=== PATIENT | female | born 1945 | race Hispanic/Latino ===

== ENCOUNTER 2017-06-27 18:05 | Inpatient (IN) | payer MEDICARE, OTHER ==
[~2017-06-27] VITALS: Ht 162.6 cm; Wt 96.1 kg
[2017-06-27 19:11] LABS: BASOPHILS % (AUTO) 0.4 % (0.0-5.0); EOSINOPHILS % (AUTO) 1.3 % (0.0-8.0); HEMATOCRIT 43.2 % (36-48); LYMPHOCYTES % (AUTO) 18.7 % (21.0-51.0); MEAN CORPUSCULAR HEMOGLOBIN 26.8 pg (27.0-33.0); MEAN CORPUSCULAR HGB CONC 31.5 g/dL (32.0-36.0); MEAN CORPUSCULAR VOLUME 84.9 fL (79-99); MONOCYTES % (AUTO) 7.3 % (3.0-13.0); NEUTROPHILS % (AUTO) 72.3 % (40.0-77.0); PLATELET COUNT (AUTO) 344 K/uL (130-400); RED BLOOD CELL COUNT(AUTO) 5.09 MIL/uL (4.00-5.50); RED CELL DISTRIBUTION WIDTH 17.6 % (11.0-15.5); WHITE BLOOD COUNT (AUTO) 11.6 K/uL (4.8-10.8)
[2017-06-27 19:16] LABS: RAPID GROUP A STREP NEGATIVE (NEGATIVE)
[2017-06-27 19:24] LABS: POTASSIUM 3.6 mmol/L (3.5-5.1)
[2017-06-27 19:36] LABS: ALBUMIN 2.5 g/dL (3.5-5.0); BILIRUBIN,TOTAL 1.3 mg/dL (0.2-1.0); CREATINE KINASE MB 3.6 ng/mL (0.5-3.6); TOTAL PROTEIN, SERUM 7.8 g/dL (6.0-8.3)
[2017-06-27] MEDS ORDERED: SODIUM CHLORIDE 0.9% 1000ML 2,000 ML IV ONE (19:48)
[2017-06-27 19:51] LABS: B-TYPE NATRIURETIC PEPTIDE 1220 pg/mL (0-100)
[2017-06-27] MEDS ORDERED: CEFTRIAXONE SODIUM 1 GM ONE (20:01)
[2017-06-27] MEDS ORDERED: ASPIRIN 325 MG TABLET ONE (20:01)
[2017-06-27] MEDS ORDERED: AZITHROMYCIN 500MG+NS 250ML 250 ML IV ONE (20:42)
[2017-06-27] MEDS ORDERED: BENZONATATE 100 MG CAPSULE PO ONE (20:48)
[2017-06-27] MEDS ORDERED: ENOXAPARIN SODIUM 40 MG/0.4 ML SYRINGE SQ ONE (22:08)
[2017-06-27] MEDS ORDERED: FUROSEMIDE 10 MG/ML 2ML VIAL ONE (22:08)
[2017-06-27] MEDS ORDERED: METOPROLOL TARTRATE 25 MG TAB ONE (22:09)
[2017-06-27 22:34] LABS: APPEARANCE,URINE Cloudy (CLEAR); BILIRUBIN,URINE Small (NEGATIVE); COLOR,URINE Dark Yellow (YELLOW); GLUCOSE, URINE (UA) Negative (NEGATIVE); KETONES,URINE Trace mg/dL (NEGATIVE); LEUKOCYTE ESTERASE ,URINE Negative (NEGATIVE); NITRATE,URINE Negative (NEGATIVE); OCCULT BLOOD,URINE Trace (NEGATIVE); PROTEIN,URINE POS 2+ (NEGATIVE)
[2017-06-27 22:50] LABS: BACTERIA,URINE Many /HPF (None Seen); MUCUS,URINE Many LPF (None Seen); SQUAMOUS EPITHELIAL CELL,UR Moderate /LPF (0-2)
[2017-06-27] MEDS ORDERED: LIDOCAINE HCL-MPF 1% 2ML VIAL IJ PRN (23:15)
[2017-06-27] MEDS ORDERED: LACTULOSE 20 GM/30 ML UDCUP PO PRN (23:15)
[2017-06-27] MEDS ORDERED: POTASSIUM CHLORIDE 20MEQ/100ML 100 ML IV PRN (23:15)
[2017-06-27] MEDS ORDERED: CLONIDINE HCL 0.1 MG TABLET PO PRN (23:15)
[2017-06-27] MEDS ORDERED: DEXTROSE 50%-WATER 50 ML DISP.SYRIN IV PRN (23:15)
[2017-06-27] MEDS ORDERED: POTASSIUM CHLORIDE 10% ELIXIR 20 MEQ/15 ML UDCUP PO PRN (23:15)
[2017-06-27] MEDS ORDERED: ACETAMINOPHEN 325 MG TAB PO PRN ×2 (23:15)
[2017-06-27] MEDS ORDERED: NITROGLYCERIN 0.4 MG SL TAB SL PRN (23:15)
[2017-06-27] MEDS ORDERED: GLUCAGON 1MG KIT 1 MG ML IM PRN (23:15)
[2017-06-28] VITALS (7 sets, daily range): BP systolic 116–154; BP diastolic 66–93
[2017-06-28] MEDS ORDERED: HYDRALAZINE HCL 20 MG/ML VIAL IV PRN (00:45)
[2017-06-28] MEDS ORDERED: ONDANSETRON HCL 4 MG/2 ML VIAL IVP PRN (00:45)
[2017-06-28] MEDS: FUROSEMIDE 10 MG/ML 2ML VIAL IV SCH ×3 (00:45→19:48)
[2017-06-28] MEDS: IPRATROPIUM/ALBUTEROL SULFATE 3 ML SOLUTION IH SCH ×6 (02:34→21:40)
[2017-06-28] MEDS ORDERED: VANCOMYCIN 1GM+NS 250ML 250 ML IV ONE (03:33)
[2017-06-28 05:53] LABS: BASOPHILS % (AUTO) 0.5 % (0.0-5.0); EOSINOPHILS % (AUTO) 2.5 % (0.0-8.0); HEMATOCRIT 38.4 % (36-48); LYMPHOCYTES % (AUTO) 26.6 % (21.0-51.0); MEAN CORPUSCULAR HEMOGLOBIN 27.6 pg (27.0-33.0); MEAN CORPUSCULAR HGB CONC 32.6 g/dL (32.0-36.0); MEAN CORPUSCULAR VOLUME 84.6 fL (79-99); MONOCYTES % (AUTO) 10.1 % (3.0-13.0); NEUTROPHILS % (AUTO) 60.3 % (40.0-77.0); PLATELET COUNT (AUTO) 319 K/uL (130-400); RED BLOOD CELL COUNT(AUTO) 4.54 MIL/uL (4.00-5.50); RED CELL DISTRIBUTION WIDTH 16.6 % (11.0-15.5); WHITE BLOOD COUNT (AUTO) 11.4 K/uL (4.8-10.8)
[2017-06-28] MEDS: INSULIN R NPO SSI SQ SCH ×3 (06:00→12:00)
[2017-06-28 06:02] LABS: INR 1.12 (0.85-1.15); PARTIAL THROMBOPLASTIN TIME 26.2 SEC (26.3-35.5); PROTHROMBIN TIME 11.7 SEC (9.6-11.6)
[2017-06-28 06:06] LABS: HEMOGLOBIN A1C 6.3 % (4.0-6.0)
[2017-06-28 06:13] LABS: B-TYPE NATRIURETIC PEPTIDE 1090 pg/mL (0-100)
[2017-06-28 06:25] LABS: POTASSIUM 3.8 mmol/L (3.5-5.1)
[2017-06-28 06:26] LABS: CREATINE KINASE MB 2.4 ng/mL (0.5-3.6)
[2017-06-28 06:27] LABS: TROPONIN I 1.78 ng/mL (0.00-0.06)
[2017-06-28] MEDS ORDERED: IPRATROPIUM/ALBUTEROL SULFATE 3 ML SOLUTION IH ONE (06:57)
[2017-06-28] MEDS ORDERED: CEFTRIAXONE 1GM/D5W 50ML 50 ML IV SCH (08:30)
[2017-06-28] MEDS ORDERED: AZITHROMYCIN 500MG+NS 250ML 250 ML IV SCH (09:00)
[2017-06-28] MEDS ORDERED: CLOPIDOGREL BISULFATE 300 MG TAB PO SCH ×2 (09:00→16:37)
[2017-06-28] MEDS ORDERED: ASPIRIN 325 MG TABLET PO SCH (09:00)
[2017-06-28] MEDS ORDERED: PHARMACY COMMUNICATION MISC SCH (10:15)
[2017-06-28] MEDS: METOPROLOL TARTRATE 25 MG TAB PO SCH ×2 (10:21→19:50)
[2017-06-28] MEDS: ASPIRIN 81MG TAB.CHEW PO SCH (10:21)
[2017-06-28] MEDS ORDERED: IOPAMIDOL-370 100 ML VIAL IV ONE (10:58)
[2017-06-28 13:24] LABS: CREATINE KINASE MB 1.8 ng/mL (0.5-3.6)
[2017-06-28 13:26] LABS: TROPONIN I 1.21 ng/mL (0.00-0.06)
[2017-06-28] MEDS: ENOXAPARIN SODIUM 100 MG/1 ML SQ SCH (14:16)
[2017-06-28 14:53] LABS: MAGNESIUM 1.5 mg/dL (1.80-2.40); POTASSIUM 3.4 mmol/L (3.5-5.1)
[2017-06-28] MEDS ORDERED: MAGNESIUM 2GM PREMIX 50ML 50 ML IV PRN (15:00)
[2017-06-28] MEDS ORDERED: SODIUM CHLORIDE 0.9% 250 ML IV ONE (15:16)
[2017-06-28] MEDS: POTASSIUM CHLORIDE 20 MEQ ERTAB PO PRN ×2 (15:18→16:33)
[2017-06-28] MEDS: INSULIN R PO SS1 SQ SCH ×2 (16:21→21:00)
[2017-06-28] MEDS: AZITHROMYCIN 500MG+NS 250ML 250 ML IV SCH (19:50)
[2017-06-28] MEDS ORDERED: CEFTRIAXONE SODIUM 1 GM IVP SCH (20:00)
[2017-06-28] MEDS ORDERED: ENOXAPARIN SODIUM 100 MG/1 ML SQ SCH (21:00)
[2017-06-29] VITALS: BP 120/76
[2017-06-29] MEDS: IPRATROPIUM/ALBUTEROL SULFATE 3 ML SOLUTION IH SCH ×6 (01:17→21:30)
[2017-06-29] MEDS: ENOXAPARIN SODIUM 100 MG/1 ML SQ SCH ×3 (01:33→20:45)
[2017-06-29 03:57] LABS: BASOPHILS % (AUTO) 0.8 % (0.0-5.0); EOSINOPHILS % (AUTO) 2.7 % (0.0-8.0); HEMATOCRIT 38.7 % (36-48); MEAN CORPUSCULAR HEMOGLOBIN 27.3 pg (27.0-33.0); MEAN CORPUSCULAR HGB CONC 32.3 g/dL (32.0-36.0); MEAN CORPUSCULAR VOLUME 84.4 fL (79-99); MONOCYTES % (AUTO) 8.3 % (3.0-13.0); NEUTROPHILS % (AUTO) 67.2 % (40.0-77.0); PLATELET COUNT (AUTO) 326 K/uL (130-400); RED BLOOD CELL COUNT(AUTO) 4.59 MIL/uL (4.00-5.50); WHITE BLOOD COUNT (AUTO) 9.9 K/uL (4.8-10.8)
[2017-06-29 04:03] VITALS: BP 116/66
[2017-06-29 04:07] LABS: CREATININE 1.1 mg/dL (0.5-1.5); POTASSIUM 3.5 mmol/L (3.5-5.1)
[2017-06-29 04:24] LABS: B-TYPE NATRIURETIC PEPTIDE 628 pg/mL (0-100)
[2017-06-29] MEDS: POTASSIUM CHLORIDE 20 MEQ ERTAB PO PRN ×2 (05:54→18:33)
[2017-06-29] MEDS: INSULIN R PO SS1 SQ SCH ×4 (06:03→21:00)
[2017-06-29] MEDS: ASPIRIN 81MG TAB.CHEW PO SCH (08:57)
[2017-06-29] MEDS: FUROSEMIDE 10 MG/ML 2ML VIAL IV SCH ×2 (08:57→20:44)
[2017-06-29] MEDS: CARVEDILOL 3.125 MG TABLET PO SCH ×2 (08:57→20:45)
[2017-06-29] MEDS: LISINOPRIL 2.5 MG TABLET PO SCH (08:58)
[2017-06-29] MEDS: CLOPIDOGREL BISULFATE 75 MG TAB PO SCH (08:58)
[2017-06-29] MEDS ORDERED: ENOXAPARIN SODIUM 40 MG/0.4 ML SYRINGE SQ SCH ×2 (09:00)
[2017-06-29] MEDS: FAMOTIDINE 20MG TAB 20 MG TAB PO SCH ×2 (09:01→20:45)
[2017-06-29 11:00] VITALS: BP 127/72
[2017-06-29] MEDS: ZOSYN 3.375GM+NS 50ML 50 ML IV SCH ×2 (15:05→23:41)
[2017-06-29 16:09] VITALS: BP 116/86
[2017-06-29] MEDS ORDERED: DIPHENHYDRAMINE HCL 25 MG CAPSULE PO PRN (17:45)
[2017-06-29 19:36] VITALS: BP 116/69
[2017-06-29] MEDS ORDERED: SODIUM CHLORIDE 0.9% 250 ML IV ONE (20:29)
[2017-06-29] MEDS: AZITHROMYCIN 500MG+NS 250ML 250 ML IV SCH (20:42)
[2017-06-29 23:14] VITALS: BP 100/67
[2017-06-30] MEDS: GUAIFENESIN SUGAR-FREE 100 MG/5 ML UDCUP PO PRN ×2 (00:13→22:50)
[2017-06-30] MEDS: IPRATROPIUM/ALBUTEROL SULFATE 3 ML SOLUTION IH SCH ×6 (01:36→22:13)
[2017-06-30 03:20] LABS: BASOPHILS % (AUTO) 0.4 % (0.0-5.0); EOSINOPHILS % (AUTO) 3.9 % (0.0-8.0); LYMPHOCYTES % (AUTO) 20.8 % (21.0-51.0); MEAN CORPUSCULAR HEMOGLOBIN 27.3 pg (27.0-33.0); MEAN CORPUSCULAR HGB CONC 31.6 g/dL (32.0-36.0); MEAN CORPUSCULAR VOLUME 86.4 fL (79-99); MONOCYTES % (AUTO) 8.9 % (3.0-13.0); PLATELET COUNT (AUTO) 348 K/uL (130-400); RED CELL DISTRIBUTION WIDTH 17.3 % (11.0-15.5); WHITE BLOOD COUNT (AUTO) 11.1 K/uL (4.8-10.8)
[2017-06-30 03:31] LABS: B-TYPE NATRIURETIC PEPTIDE 258 pg/mL (0-100)
[2017-06-30 03:42] VITALS: BP 116/67
[2017-06-30 03:51] LABS: CREATININE 1.1 mg/dL (0.5-1.5); POTASSIUM 3.9 mmol/L (3.5-5.1)
[2017-06-30] MEDS: ZOSYN 3.375GM+NS 50ML 50 ML IV SCH ×3 (05:23→22:47)
[2017-06-30] MEDS: INSULIN R PO SS1 SQ SCH ×4 (05:48→21:00)
[2017-06-30 07:26] VITALS: BP 115/77
[2017-06-30] MEDS: ASPIRIN 81MG TAB.CHEW PO SCH (07:42)
[2017-06-30] MEDS: FAMOTIDINE 20MG TAB 20 MG TAB PO SCH ×2 (07:42→21:12)
[2017-06-30] MEDS: FUROSEMIDE 10 MG/ML 2ML VIAL IV SCH ×2 (07:42→21:13)
[2017-06-30] MEDS: LISINOPRIL 2.5 MG TABLET PO SCH (07:43)
[2017-06-30] MEDS: CARVEDILOL 3.125 MG TABLET PO SCH ×2 (07:43→21:13)
[2017-06-30] MEDS: CLOPIDOGREL BISULFATE 75 MG TAB PO SCH (07:43)
[2017-06-30] MEDS ORDERED: ENOXAPARIN SODIUM 100 MG/1 ML SQ SCH (09:00)
[2017-06-30] MEDS ORDERED: ENOXAPARIN SODIUM 40 MG/0.4 ML SYRINGE SQ SCH (09:00)
[2017-06-30 11:31] VITALS: BP 98/65
[2017-06-30 16:12] VITALS: BP 115/61
[2017-06-30 19:44] VITALS: BP 125/72
[2017-06-30] MEDS: RIVAROXABAN 15 MG TABLET PO SCH (21:12)
[2017-06-30] MEDS: AZITHROMYCIN 500MG+NS 250ML 250 ML IV SCH (21:14)
[2017-06-30 23:40] VITALS: BP 115/91
[2017-07-01] MEDS: IPRATROPIUM/ALBUTEROL SULFATE 3 ML SOLUTION IH SCH ×6 (02:11→22:09)
[2017-07-01 04:08] VITALS: BP 112/77
[2017-07-01 04:14] LABS: HEMATOCRIT 33.8 % (36-48); MEAN CORPUSCULAR HEMOGLOBIN 27.2 pg (27.0-33.0); MEAN CORPUSCULAR HGB CONC 31.9 g/dL (32.0-36.0); MEAN CORPUSCULAR VOLUME 85.1 fL (79-99); PLATELET COUNT (AUTO) 328 K/uL (130-400); RED BLOOD CELL COUNT(AUTO) 3.97 MIL/uL (4.00-5.50); RED CELL DISTRIBUTION WIDTH 16.8 % (11.0-15.5); WHITE BLOOD COUNT (AUTO) 8.8 K/uL (4.8-10.8)
[2017-07-01 05:05] LABS: CREATININE 1.2 mg/dL (0.5-1.5); POTASSIUM 3.5 mmol/L (3.5-5.1)
[2017-07-01] MEDS: POTASSIUM CHLORIDE 20 MEQ ERTAB PO PRN ×2 (05:32→07:18)
[2017-07-01] MEDS: ZOSYN 3.375GM+NS 50ML 50 ML IV SCH ×3 (05:32→22:15)
[2017-07-01] MEDS: GUAIFENESIN SUGAR-FREE 100 MG/5 ML UDCUP PO PRN ×2 (05:36→22:01)
[2017-07-01] MEDS: INSULIN R PO SS1 SQ SCH ×4 (06:05→20:30)
[2017-07-01] MEDS: LISINOPRIL 2.5 MG TABLET PO SCH (07:16)
[2017-07-01] MEDS: CARVEDILOL 3.125 MG TABLET PO SCH ×2 (07:16→19:57)
[2017-07-01] MEDS: ASPIRIN 81MG TAB.CHEW PO SCH (07:17)
[2017-07-01] MEDS: CLOPIDOGREL BISULFATE 75 MG TAB PO SCH (07:17)
[2017-07-01] MEDS: RIVAROXABAN 15 MG TABLET PO SCH ×2 (07:17→19:57)
[2017-07-01] MEDS: FAMOTIDINE 20MG TAB 20 MG TAB PO SCH ×2 (07:17→19:57)
[2017-07-01] MEDS: FUROSEMIDE 10 MG/ML 2ML VIAL IV SCH (07:18)
[2017-07-01 07:50] VITALS: BP 98/58
[2017-07-01] MEDS: POTASSIUM CHLORIDE 10 MEQ/TAB.SA PO SCH (09:00)
[2017-07-01] MEDS: FUROSEMIDE 40 MG TABLET PO SCH (09:00)
[2017-07-01 11:12] VITALS: BP 113/65
[2017-07-01 16:36] VITALS: BP 106/72
[2017-07-01 19:55] VITALS: BP 122/71
[2017-07-01] MEDS: AZITHROMYCIN 500MG+NS 250ML 250 ML IV SCH (20:30)
[2017-07-01 23:06] VITALS: BP 136/90
[2017-07-02] MEDS: IPRATROPIUM/ALBUTEROL SULFATE 3 ML SOLUTION IH SCH ×3 (02:08→09:38)
[2017-07-02 03:59] VITALS: BP 132/86
[2017-07-02 04:46] LABS: POTASSIUM 3.5 mmol/L (3.5-5.1)
[2017-07-02] MEDS: ZOSYN 3.375GM+NS 50ML 50 ML IV SCH (05:15)
[2017-07-02] MEDS: POTASSIUM CHLORIDE 20 MEQ ERTAB PO PRN (05:15)
[2017-07-02] MEDS: INSULIN R PO SS1 SQ SCH (06:16)
[2017-07-02 07:00] VITALS: BP 137/80
[2017-07-02 07:21] VITALS: BP 132/86
[2017-07-02] MEDS: RIVAROXABAN 15 MG TABLET PO SCH (07:21)
[2017-07-02] MEDS: LISINOPRIL 2.5 MG TABLET PO SCH (07:21)
[2017-07-02] MEDS: CARVEDILOL 3.125 MG TABLET PO SCH (07:21)
[2017-07-02] MEDS: CLOPIDOGREL BISULFATE 75 MG TAB PO SCH (07:21)
[2017-07-02] MEDS: FAMOTIDINE 20MG TAB 20 MG TAB PO SCH (07:22)
[2017-07-02] MEDS: FUROSEMIDE 40 MG TABLET PO SCH (07:22)
[2017-07-02] MEDS: POTASSIUM CHLORIDE 10 MEQ/TAB.SA PO SCH (07:22)
== END 2017-07-02 10:50 | disposition home or self-care (01) | DRG 871 ==
LOC: EDH 18:05 → EDHIP 21:15 → 2CH 06-28 08:38 → 2DH 06-29 13:07
PROVIDERS: ADMIT Family Medicine; ATTEND Family Medicine
DX: A41.9 Sepsis, unspecified organism (principal); I21.4 Non-ST elevation (NSTEMI) myocardial infarction; I26.99 Other pulmonary embolism without acute cor pulmonale; J18.9 Pneumonia, unspecified organism; I50.23 Acute on chronic systolic (congestive) heart failure; N18.3 Chronic kidney disease, stage 3 (moderate); I82.411 Acute embolism and thrombosis of right femoral vein; E11.22 Type 2 diabetes mellitus with diabetic chronic kidney disease; E87.2 Acidosis; I42.0 Dilated cardiomyopathy; I45.10 Unspecified right bundle-branch block; I25.10 Atherosclerotic heart disease of native coronary artery without angina pectoris; R79.1 Abnormal coagulation profile; Z90.49 Acquired absence of other specified parts of digestive tract; Z88.6 Allergy status to analgesic agent; Z79.01 Long term (current) use of anticoagulants; Z79.02 Long term (current) use of antithrombotics/antiplatelets; Z79.82 Long term (current) use of aspirin
CPT/HCPCS: 36415; 71045; 71046; 71275; 80048; 80053; 80061; 81001; 82550; 82553; 82948; 83036; 83605; 83735; 83874; 83880; 84132; 84484; 85025; 85027; 85378; 85610; 85730; 87040; 87088; 87186; 87804; 87880; 93005; 93306; 93970; 94640; 94664; 94760; A4218; J0456; J0696; J1650; J1940; J2543; J3370; J3475; J7030; Q0163; Q9967

== ENCOUNTER → 2017-09-15 | Outpatient (CLI) | payer OTHER ==
[~2017-09-15] MED LIST: REGADENOSON 0.4 MG/5 ML PF SYG IVP SCH
== END | disposition home or self-care (01) ==
LOC: SHCH 09-11 10:16
PROVIDERS: ATTEND Internal Medicine Cardiovascular Disease
DX: I42.9 Cardiomyopathy, unspecified (principal); I50.9 Heart failure, unspecified; I25.9 Chronic ischemic heart disease, unspecified; I51.7 Cardiomegaly
CPT/HCPCS: 78452; 93017; 96374; A9500 ×2; J2785

== ENCOUNTER → 2017-10-13 | Outpatient (CLI) | payer OTHER | END | disposition home or self-care (01) | LOC: SHCH 09:49 | PROVIDERS: ATTEND Internal Medicine Cardiovascular Disease | DX: I25.5 Ischemic cardiomyopathy (principal) | CPT/HCPCS: 93306 ==